=== PATIENT | male | born 1995 | race American Indian/Alaskan Native ===

== ENCOUNTER 2019-05-03 17:48 | Emergency (ER) | payer MEDICAID ==
[~2019-05-03] VITALS: Ht 185.4 cm; Wt 85.0 kg
[2019-05-03 18:38] LABS: BASOPHILS % (AUTO) 0.4 % (0-1); EOSINOPHILS % (AUTO) 0.2 % (0-6); HEMATOCRIT 42.2 % (42.0-52.0); HEMOGLOBIN 14.7 g/dl (14.0-17.9); LYMPHOCYTES # (AUTO) 1.5 X10'3 (1.1-4.8); LYMPHOCYTES % (AUTO) 18.6 % (21-51); MEAN CORPUSCULAR HGB CONC 34.9 g/dL (33.0-36.5); MEAN CORPUSCULAR VOLUME 86.2 FL (78-98); MEAN PLATELET VOLUME 8.7 FL (7.4-10.4); MONOCYTES # (AUTO) 0.3 X10'3 (0-0.9); MONOCYTES % (AUTO) 3.4 % (2-12); NEUTROPHILS # (AUTO) 6.2 X10'3 (1.8-7.7); NEUTROPHILS % (AUTO) 77.4 % (42-75); PLATELET COUNT 209 X10'3 (140-440); RED BLOOD COUNT 4.89 X10'6 (4.70-6.10); WHITE BLOOD COUNT 7.9 X10'3 (4.5-11.0)
[2019-05-03 19:04] LABS: ALANINE AMINOTRANSFERASE 25 U/L (12-78); ALBUMIN 4.5 G/DL (3.4-5.0); ALBUMIN/GLOBULIN RATIO 1.2 (1.1-1.5); ALKALINE PHOSPHATASE 79 IU/L (46-116); ANION GAP 13 (8-16); ASPARTATE AMINO TRANSFERASE 24 U/L (10-37); BILIRUBIN,TOTAL 0.4 MG/DL (0.1-1.0); BLOOD UREA NITROGEN 10 MG/DL (7-18); BUN/CREATININE RATIO 11.1 (5.4-32.0); CALCIUM 9.2 MG/DL (8.5-10.1); CHLORIDE 106 MMOL/L (99-107); GLUCOSE 97 MG/DL (70-104); POTASSIUM 3.4 MMOL/L (3.5-5.1); SODIUM 144 MMOL/L (135-145); TOTAL CARBON DIOXIDE 25.4 MMOL/L (24-32); TOTAL PROTEIN 8.2 G/DL (6.4-8.2); eGFR > 90 ML/MIN
[2019-05-03 19:08] LABS: CLARITY,URINE CLEAR (Clear); COLOR,URINE YELLOW (Yellow); GLUCOSE, URINE NEGATIVE (Neg); KETONES,URINE NEGATIVE (Neg); LEUKOCYTE ESTERASE ,URINE TRACE (Neg); NITRITES, URINE NEGATIVE (Neg); OCCULT BLOOD,URINE NEGATIVE (Neg); PROTEIN,URINE NEGATIVE (Neg); UROBILINOGEN,URINE 0.2 E.U/dL (0.2-1.0)
[2019-05-03 19:09] LABS: UA COLLECTION TYPE VOIDED
[2019-05-03 19:14] LABS: ETHANOL < 0.010 GM/DL (0.0-0.010)
[2019-05-03 19:16] LABS: RBC,URINE NONE SEEN /HPF (0-2); WBC,URINE 0-4 /HPF (0-4)
[2019-05-03 19:17] LABS: BACTERIA,URINE NONE SEEN /HPF (Neg); MUCUS STRANDS FEW /LPF (Neg); SQUAMOUS EPITHELIAL CELL,UR FEW /LPF (FEW); URINE AMPHETAMINE SCREEN NEGATIVE (Neg); URINE BARBITUATE SCREEN NEGATIVE (Neg); URINE BENZODIAZEPINES SCREEN NEGATIVE (Neg); URINE CANNABINOID SCREEN POSITIVE (Neg); URINE COCAINE SCREEN NEGATIVE (Neg); URINE METHADONE SCREEN NEGATIVE (Neg); URINE OPIATE SCREEN NEGATIVE (Neg); URINE PHENCYCLIDINE SCREEN NEGATIVE (Neg); WBC CLUMPS,URINE FEW /HPF (NEGATIVE)
--- NOTE | 2019-05-03 19:22 | NUR ---
States he has been thinking about comitting suicide by jumping off a bridge for "months" now. He has previous attempted self-harm by cutting his ankles approx one year ago. He lives with a "nurse", Jesús, and other [employer] students. He is not a student himself. Avoidant eye-contact, tearful. Calm, pleasant, and cooperative. He states he drinks alcohol and uses THC daily, his last drink was one week ago.
[2019-05-03] MEDS ORDERED: NO HOME MEDS (19:28)
--- NOTE | 2019-05-03 20:23 | NUR ---
Packet faxed to [facility]. Confirmed receipt of packet with Michelle @ [facility] office.
[2019-05-03] MEDS ORDERED: diphenhydrAMINE 25mg capsule PO ONE (20:25)
--- NOTE | 2019-05-04 | NUR ---
Pt resting quietly, respirations normal, no s/s of distress.
--- NOTE | 2019-05-04 01:00 | NUR ---
Pt resting quietly, respirations normal, no s/s of distress.
--- NOTE | 2019-05-04 02:00 | NUR ---
Pt resting quietly, respirations normal, no s/s of distress.
--- NOTE | 2019-05-04 02:44 | NUR ---
Pt resting quietly, respirations normal, no s/s of distress.
--- NOTE | 2019-05-04 03:30 | NUR ---
Pt resting quietly, respirations normal, no s/s of distress.
--- NOTE | 2019-05-04 04:34 | NUR ---
Pt resting quietly, respirations normal, no s/s of distress.
[2019-05-04] MEDS ORDERED: LORazepam 1 MG tablet PO ONE (05:05)
--- NOTE | 2019-05-04 05:28 | NUR ---
Pt resting quietly, respirations normal, no s/s of distress.
--- NOTE | 2019-05-04 06:30 | NUR ---
Pt resting with eyes closed, effortless respirations observed.
[2019-05-04] MEDS ORDERED: potassium chloride 10mEq ER tablet PO SCH (08:00)
--- NOTE | 2019-05-04 11:10 | NUR ---
Pt being evaluated by [facility] worker.
--- NOTE | 2019-05-04 11:30 | NUR ---
Pt placed on 5150 by [facility]
[2019-05-04] MEDS ORDERED: hydrOXYzine 25 MG tablet PO PRN (14:10)
--- NOTE | 2019-05-04 15:25 | NUR ---
Report given to Antonia from [facility] regarding possible placement
--- NOTE | 2019-05-04 16:00 | NUR ---
PT ACCEPTED FOR PLACEMENT AT [facility] BY DR. HUIZAR. TRANSPORT TO [facility] [employer] PT APPROX 808
--- NOTE | 2019-05-04 16:16 | NUR ---
Sent page to [facility]. RN would like pt. to be seen by provider to start pt. on medication. Pt. said he wants to start taking medication so he can feel better, and get back to work.
[2019-05-04 17:20] VITALS: BP 120/76
--- NOTE | 2019-05-04 17:29 | NUR ---
Transport time changed and pt to be picked up around 2044
--- NOTE | 2019-05-04 19:30 | NUR ---
UPADTED PLOC WITH PATIENT . REMINDED PATIENT THAT HE IS SUPPOSE TO BE TRANFERED TO [facility] THIS EVENING AT 2029 TO 2044 TODAY. PT DENIES ANYNEEDS AT THIS TIME . NO QUESTIONS ASKED. REFILLED WATER.
--- NOTE | 2019-05-04 20:21 | NUR ---
PT FATHER HUSEYIN CALLED TO SPEAK WITH PATIENT ABOUT CURRENT STATUS. INFORMED FATHER PHONE HOURS ARE BETWEEN 8 AND 2000 HUSEYIN CAN BE REACHED AT [phone]
--- NOTE | 2019-05-04 20:45 | NUR ---
ROSA FROM [facility] HERE TO TRANSPORT PT TO [facility] . ACCEPTIN ROSENDO HUIZAR TO RECEIVE JESUS ALBERTO MOSLEY RN CALLED REPORT TO [facility]. PATIENT PLAN OF CARE UPDATED. INFORMED PATIENT THAT HIS FATHER HUSEYIN HAS CALLED TO CHECK ON HIM. PATIENT SNE TO BATHROOM TO DRESS SECURITY CALLED FOR EXCORT TO TRANSFER VAN. PATIENT COROPORATIVE . APRIL COLE HERE TO FURTHER ASSESS WITH DEPARTURE.
--- NOTE | 2019-05-04 21:00 | NUR ---
RETURNED FROM [facility] PATIENT TARNSFERED TO [facility] ACCOMPINED WITH ROSA FROM [facility]
== END 2019-05-04 20:49 ==
LOC: ER 17:49
DX: R45.851 Suicidal ideations (principal); F12.90 Cannabis use, unspecified, uncomplicated
CPT/HCPCS: 36415; 80053; 80305; 80320; 81001; 84443; 85025; 99285; Q0163; Z7610; 99284